=== PATIENT | male | born 1950 | race Caucasian/White ===

== ENCOUNTER → 2017-10-29 | Outpatient (CLI) | payer MEDICARE, MEDICAID ==
[~2017-10-29] MED LIST: NAPR-685 PO; OXYC-307 PO; SIMV10TA3 PO; SOLI5TAB2 PO; TERA2CAP3 PO; ZOLP10TA5 PO
== END | disposition home or self-care (01) ==
LOC: PETCFH 11:29
PROVIDERS: ATTEND Internal Medicine Hematology & Oncology
DX: C20 Malignant neoplasm of rectum (principal); R91.8 Other nonspecific abnormal finding of lung field; J44.9 Chronic obstructive pulmonary disease, unspecified
CPT/HCPCS: 78815; A9552